=== PATIENT | female | born 1940 | race Caucasian/White ===

== ENCOUNTER 2019-01-14 06:41 | Emergency (ER) | payer MEDICARE, BC ==
[~2019-01-14] VITALS: Ht 160 cm; Wt 61.4 kg
[~2019-01-14 06:41] MED LIST: LIPITOR10 MG PO; METOPROL TAR25 MG PO
[2019-01-14 07:51] LABS: HEMATOCRIT 38.4 % (37.0-47.0); HEMOGLOBIN 12.4 g/dl (12.0-16.0); IMMATURE GRANULOCYTES 0.6 % (0.0-5.0); MEAN CORPUSCULAR HGB 31.3 pG CALC (26.0-32.0); MEAN CORPUSCULAR HGB CONC 32.3 g/L CALC (32.0-36.0); NEUT# 5.39 thou/uL (2.00-7.15); RED BLOOD COUNT 3.96 mill/uL (4.20-5.60); RED CELL DISTRI WIDTH 12.3 % (11.5-15.5)
[2019-01-14 08:03] LABS: ANION GAP 11 (6-22 (CALC)); BUN 16 mg/dL (8-23); BUN/CREATININE RATIO 29 (12-20 (CALC)); CARBON DIOXIDE 28 mmol/l (22-30); CHLORIDE 105 mmol/l (95-108); CREATININE 0.5 mg/dL (0.5-1.0); GFR > 60 ML/MIN (>=60 (CALC)); GFR FOR AFR.AMER. > 60 ML/MIN (>=60 (CALC)); POTASSIUM 4.1 mmol/l (3.5-5.1); SODIUM 141 mmol/l (137-146)
[2019-01-14] MEDS ORDERED: MECLIZINE25 MG PO (08:30)
[2019-01-14 08:34] VITALS: BP 166/76
[2019-01-14] MEDS ORDERED: ZOFRAN ODT4 MG PO (08:37)
== END 2019-01-14 08:53 | disposition home or self-care (01) ==
LOC: ED 06:41
PROVIDERS: Family Medicine
DX: R42 Dizziness and giddiness (principal)

== ENCOUNTER 2019-09-03 | Emergency (ER) | payer MEDICARE, BC ==
[~2019-09-03] MED LIST changes: +MECLIZINE25 MG PO; +ZOFRAN ODT4 MG PO
[2019-09-03 20:39] LABS: HEMATOCRIT 36.6 % (37.0-47.0); HEMOGLOBIN 11.9 g/dl (12.0-16.0); IMMATURE GRANULOCYTES 0.2 % (0.0-5.0); MEAN CELL VOLUME 97.3 fL CALC (80.0-100.0); MEAN CORPUSCULAR HGB 31.6 pG CALC (26.0-32.0); MEAN CORPUSCULAR HGB CONC 32.5 g/L CALC (32.0-36.0); NEUT# 2.55 thou/uL (2.00-7.15); RED BLOOD COUNT 3.76 mill/uL (4.20-5.60); RED CELL DISTRI WIDTH 12.5 % (11.5-15.5)
[2019-09-03 20:56] LABS: ALBUMIN 3.9 g/dL (3.2-5.0); ALKALINE PHOSPHATASE 82 u/l (38-126); AMYLASE 70 u/l (30-110); ANION GAP 9 (6-22 (CALC)); BUN 10 mg/dL (8-23); BUN/CREATININE RATIO 23 (12-20 (CALC)); CARBON DIOXIDE 31 mmol/l (22-30); CHLORIDE 102 mmol/l (95-108); CREATININE 0.5 mg/dL (0.5-1.0); GFR > 60 ML/MIN (>=60 (CALC)); GFR FOR AFR.AMER. > 60 ML/MIN (>=60 (CALC)); LIPASE 71 u/l (23-300); POTASSIUM 3.6 mmol/l (3.5-5.1); SGOT/AST 24 u/l (9-36); SODIUM 138 mmol/l (137-146); TOTAL PROTEIN 6.8 g/dL (6.3-8.2)
[2019-09-03 20:57] LABS: BILIRUBIN, TOTAL 0.3 mg/dL (0.0-1.4)
[2019-09-03 20:58] LABS: ACT PARTIAL THROMBO TIME 27.5 SECONDS (20.0-32.5); D-DIMER 3.32 mg/L (0.19-0.60); INTERNATIONAL NORMALIZED RATIO 0.9 RATIO (0.7-1.3); PROTHROMBIN TIME 9.7 SECONDS (9.0-12.5)
[2019-09-03 21:08] LABS: MYOGLOBIN 35 ng/mL (0 - 62)
[2019-09-03] MEDS ORDERED: TORADOL PO (22:39)
== END 2019-09-03 22:48 | disposition home or self-care (01) ==
PROVIDERS: Family Medicine
DX: M79.602 Pain in left arm (principal)
CPT/HCPCS: Q9967

== ENCOUNTER 2019-09-23 | Emergency (ER) | payer MEDICARE, BC ==
[~2019-09-23] MED LIST changes: +TORADOL PO
[2019-09-23 19:00] LABS: HEMATOCRIT 38.3 % (37.0-47.0); HEMOGLOBIN 11.9 g/dl (12.0-16.0); IMMATURE GRANULOCYTES 0.2 % (0.0-5.0); MEAN CELL VOLUME 98.5 fL CALC (80.0-100.0); MEAN CORPUSCULAR HGB 30.6 pG CALC (26.0-32.0); MEAN CORPUSCULAR HGB CONC 31.1 g/L CALC (32.0-36.0); NEUT# 2.54 thou/uL (2.00-7.15); RED BLOOD COUNT 3.89 mill/uL (4.20-5.60); RED CELL DISTRI WIDTH 12.8 % (11.5-15.5)
[2019-09-23 19:12] LABS: ALKALINE PHOSPHATASE 70 u/l (38-126); ANION GAP 8 (6-22 (CALC)); BUN 19 mg/dL (8-23); BUN/CREATININE RATIO 40 (12-20 (CALC)); CARBON DIOXIDE 29 mmol/l (22-30); CHLORIDE 103 mmol/l (95-108); CREATININE 0.5 mg/dL (0.5-1.0); GFR > 60 ML/MIN (>=60 (CALC)); GFR FOR AFR.AMER. > 60 ML/MIN (>=60 (CALC)); LIPASE 93 u/l (23-300); POTASSIUM 4.2 mmol/l (3.5-5.1); SGOT/AST 25 u/l (9-36); SODIUM 136 mmol/l (137-146); TOTAL PROTEIN 6.7 g/dL (6.3-8.2)
[2019-09-23 19:13] LABS: BILIRUBIN, TOTAL 0.6 mg/dL (0.0-1.4)
[2019-09-23 21:10] LABS: URINE BILIRUBIN - DIPSTICK NEGATIVE (NEGATIVE); URINE BLOOD DIPSTICK NEGATIVE (NEGATIVE); URINE COLOR YELLOW; URINE GLUCOSE - DIPSTICK NEGATIVE (NEGATIVE); URINE KETONE NEGATIVE (NEGATIVE); URINE LEUK ESTERASE NEGATIVE (NEGATIVE); URINE NITRITE - DIPSTICK NEGATIVE (Negative); URINE PROTEIN - DIPSTICK NEGATIVE (NEG-TRACE); URINE UROBILINOGEN - DIPSTICK 0.2 E.U./dL (0.2)
== END 2019-09-23 22:15 | disposition home or self-care (01) ==
PROVIDERS: Family Medicine
DX: R10.31 Right lower quadrant pain (principal)
CPT/HCPCS: Q9967

== ENCOUNTER 2021-11-24 14:32 | Emergency (ER) | payer MEDICARE, BC ==
[~2021-11-24] VITALS: Ht 160 cm; Wt 59.1 kg
[2021-11-24 15:39] LABS: HEMATOCRIT 37.1 % (37.0-47.0); IMMATURE GRANULOCYTES 0.2 % (0.0-5.0); MEAN CELL VOLUME 98.7 fL CALC (80.0-100.0); MEAN CORPUSCULAR HGB 31.9 pG CALC (26.0-32.0); MEAN CORPUSCULAR HGB CONC 32.3 g/dL CAL (32.0-36.0); NEUT# 2.78 thou/uL (2.00-7.15); RED BLOOD COUNT 3.76 mill/uL (4.20-5.60); RED CELL DISTRI WIDTH 12.3 % (11.5-15.5)
[2021-11-24 15:50] LABS: ALBUMIN 3.9 g/dL (3.2-5.0); ALKALINE PHOSPHATASE 65 u/l (38-126); ANION GAP 8 (6-22 (CALC)); BILIRUBIN, TOTAL 0.7 mg/dL (0.0-1.4); BUN 15 mg/dL (8-23); BUN/CREATININE RATIO 20 (12-20 (CALC)); CARBON DIOXIDE 29 mmol/l (22-30); CHLORIDE 105 mmol/l (95-108); CREATININE 0.7 mg/dL (0.5-1.0); GFR > 60 ML/MIN (>=60 (CALC)); GFR FOR AFR.AMER. > 60 ML/MIN (>=60 (CALC)); LIPASE 52 u/l (23-300); POTASSIUM 3.9 mmol/l (3.5-5.1); SGOT/AST 33 u/l (9-36); SODIUM 138 mmol/l (137-146); TOTAL PROTEIN 6.5 g/dL (6.3-8.2)
[2021-11-24 16:00] LABS: MYOGLOBIN 62 ng/mL (0 - 62)
[2021-11-24] MEDS ORDERED: BUPROPION150 M3 PO (16:06)
[2021-11-24] MEDS ORDERED: FUROSEMIDE20 MG PO (16:06)
[2021-11-24] MEDS ORDERED: DITROPAN XL5 MG PO (16:06)
[2021-11-24] MEDS ORDERED: ESCITALOPRAM OX10 MG PO (16:07)
[2021-11-24] MEDS ORDERED: MEMANTINE HYDROC5 MG (16:07)
[2021-11-24] MEDS ORDERED: ASPIRIN81 MG PO (16:08)
[2021-11-24 16:09] LABS: PROTHROMBIN TIME 10.1 SECONDS (9.0-12.5)
[2021-11-24] MEDS ORDERED: PROTONIX40 M2 PO (18:35)
[2021-11-24 18:40] VITALS: BP 148/71
== END 2021-11-24 19:12 | disposition home or self-care (01) ==
LOC: ED 14:32
PROVIDERS: Nurse Practitioner
DX: R07.9 Chest pain, unspecified (principal); K21.9 Gastro-esophageal reflux disease without esophagitis; E78.00 Pure hypercholesterolemia, unspecified

== ENCOUNTER 2022-06-19 10:20 | Day surgery (SDC) | payer MEDICARE, BC ==
[~2022-06-19] VITALS: Ht 160 cm; Wt 59.0 kg
[~2022-06-19 10:20] MED LIST changes: +ASPIRIN81 MG PO; +BUPROPION150 M3 PO; +DITROPAN XL5 MG PO; +ESCITALOPRAM OX10 MG PO; +FUROSEMIDE20 MG PO; +MEMANTINE HYDROC5 MG; +PROAIR HFA IN; +PROTONIX40 M2 PO
[2022-06-19 13:48] VITALS: BP 130/74
== END 2022-06-19 14:10 | disposition home or self-care (01) ==
LOC: ENDO 10:20 → ORM 15:30
PROVIDERS: ATTEND Internal Medicine Gastroenterology
PROC: 0DB68ZX Excision of Stomach, Via Natural or Artificial Opening Endoscopic, Diagnostic (ICD-10-PCS; principal; 2022-06-19)
PROC: 0DB78ZX Excision of Stomach, Pylorus, Via Natural or Artificial Opening Endoscopic, Diagnostic (ICD-10-PCS; 2022-06-19)
DX: K29.50 Unspecified chronic gastritis without bleeding (principal); K44.9 Diaphragmatic hernia without obstruction or gangrene; K31.7 Polyp of stomach and duodenum; I10 Essential (primary) hypertension; J44.9 Chronic obstructive pulmonary disease, unspecified; I25.10 Atherosclerotic heart disease of native coronary artery without angina pectoris; E78.5 Hyperlipidemia, unspecified

== ENCOUNTER 2024-03-11 15:14 | Observation (INO) | payer MEDICARE, BC ==
[~2024-03-11] VITALS: Ht 160 cm; Wt 53.0 kg
[2024-03-11 16:16] VITALS: BP 147/63
[2024-03-11] MEDS ORDERED: SODIUM CHLORIDE 0.9% 1,000 ML IV PRN (16:20)
[2024-03-11] MEDS ORDERED: MAGNESIUM HYDROXIDE 30 ML UDC PO PRN (16:20)
[2024-03-11] MEDS ORDERED: ACETAMINOPHEN 325 MG/TAB PO PRN ×2 (16:20→16:55)
[2024-03-11 16:24] LABS: BASO% 0.2 % (0-3); HEMATOCRIT 39.8 % (37.0-47.0); HEMOGLOBIN 13.5 g/dl (12.0-16.0); IMMATURE GRANULOCYTES 0.2 % (0.0-5.0); LYMPH% 24.4 % (15-41); MEAN CELL VOLUME 95.9 fL CALC (80.0-100.0); MEAN CORPUSCULAR HGB 32.5 pG CALC (26.0-32.0); MEAN CORPUSCULAR HGB CONC 33.9 g/dL CAL (32.0-36.0); MONO% 8.4 % (2-13); NEUT# 3.76 thou/uL (2.00-7.15); NEUT% 66.8 % (42-76); RED BLOOD COUNT 4.15 mill/uL (4.20-5.60); RED CELL DISTRI WIDTH 12.1 % (11.5-15.5)
[2024-03-11 16:33] LABS: ALBUMIN 4.1 g/dL (3.2-5.0); BILIRUBIN, TOTAL 0.6 mg/dL (0.02-1.3); CREATININE 0.9 mg/dL (0.5-1.0); POTASSIUM 4.2 mmol/l (3.5-5.1); TOTAL PROTEIN 6.6 g/dL (6.3-8.2)
[2024-03-11] MEDS ORDERED: SODIUM CHLORIDE 0.9% 10 ML SYR IV PRN (16:55)
[2024-03-11] MEDS ORDERED: ALUM & MAG HYDROX-SIMETHICONE 30 ML PO PRN (16:55)
[2024-03-11] MEDS ORDERED: Polyethylene Glycol 3350 17 GM/PKT PO PRN (16:55)
[2024-03-11] MEDS ORDERED: LORazepam 0.5 MG/TAB PO PRN (16:55)
[2024-03-11 17:21] LABS: URINE BILIRUBIN - DIPSTICK Negative (NEGATIVE); URINE BLOOD DIPSTICK Negative (NEGATIVE); URINE CLARITY Clear; URINE GLUCOSE - DIPSTICK Negative (NEGATIVE); URINE KETONE Negative (NEGATIVE); URINE LEUK ESTERASE Negative (Negative); URINE NITRITE - DIPSTICK Negative (Negative); URINE PH 6.5 (4.5-8.0); URINE PROTEIN - DIPSTICK Negative (NEG-TRACE); URINE SPECIFIC GRAVITY 1.015; URINE UROBILINOGEN - DIPSTICK 0.2 E.U./dL (0.2)
[2024-03-11 17:31] LABS: URINE COLOR Yellow
[2024-03-11 19:25] VITALS: BP 147/52
[2024-03-11] MEDS ORDERED: PANTOPRAZOLE SODIUM Sesquihydr 40 MG/TAB PO SCH (21:00)
[2024-03-11] MEDS ORDERED: MEMANTINE Hydrochloride 10 MG/TAB PO SCH (21:00)
[2024-03-11] MEDS ORDERED: ATORVASTATIN CALCIUM 10 MG/TAB PO SCH (21:00)
[2024-03-11] MEDS ORDERED: HALOPERIDOL LACTATE 5 MG/ML SDV IV PRN (21:45)
[2024-03-11] MEDS ORDERED: LORazepam 2 MG/ML IV PRN (21:45)
[2024-03-11 23:29] VITALS: BP 127/59
[2024-03-11 23:38] VITALS: BP 127/59
[2024-03-12 04:18] VITALS: BP 143/50
[2024-03-12 05:05] VITALS: BP 143/50
[2024-03-12 05:36] LABS: BASO% 0.4 % (0-3); HEMATOCRIT 35.9 % (37.0-47.0); HEMOGLOBIN 12.2 g/dl (12.0-16.0); LYMPH% 53.5 % (15-41); MEAN CELL VOLUME 97.8 fL CALC (80.0-100.0); MEAN CORPUSCULAR HGB 33.2 pG CALC (26.0-32.0); MONO% 9.2 % (2-13); NEUT# 1.77 thou/uL (2.00-7.15); NEUT% 36.9 % (42-76); RED BLOOD COUNT 3.67 mill/uL (4.20-5.60); RED CELL DISTRI WIDTH 12.2 % (11.5-15.5)
[2024-03-12 05:53] LABS: ALBUMIN 3.4 g/dL (3.2-5.0); BILIRUBIN, TOTAL 0.6 mg/dL (0.02-1.3); CREATININE 0.8 mg/dL (0.5-1.0); POTASSIUM 3.7 mmol/l (3.5-5.1); TOTAL PROTEIN 5.8 g/dL (6.3-8.2)
[2024-03-12 07:40] VITALS: BP 153/54
[2024-03-12] MEDS ORDERED: buPROPion HCL 150 MG TAB SR PO SCH (09:00)
[2024-03-12] MEDS ORDERED: ESCITALOPRAM 10 MG/TAB PO SCH (09:00)
[2024-03-12] MEDS ORDERED: CYANOCOBALAMIN 500 MCG/TAB ( B12) PO SCH (13:00)
[2024-03-12 16:10] VITALS: BP 140/67
[2024-03-12 18:57] VITALS: BP 137/53
[2024-03-12] MEDS ORDERED: ENOXAPARIN SODIUM 40 MG/0.4 ML SYR SC SCH (21:00)
[2024-03-12 23:46] VITALS: BP 129/59
[2024-03-13 04:44] VITALS: BP 149/65
[2024-03-13 06:16] LABS: ALBUMIN 3.1 g/dL (3.2-5.0); BILIRUBIN, TOTAL 0.7 mg/dL (0.02-1.3); CREATININE 0.7 mg/dL (0.5-1.0); MAGNESIUM 1.9 mg/dL (1.6-2.3); POTASSIUM 3.7 mmol/l (3.5-5.1); TOTAL PROTEIN 5.4 g/dL (6.3-8.2)
[2024-03-13 06:18] LABS: BASO% 0.4 % (0-3); HEMATOCRIT 34.3 % (37.0-47.0); HEMOGLOBIN 11.5 g/dl (12.0-16.0); IMMATURE GRANULOCYTES 0.2 % (0.0-5.0); LYMPH% 49.1 % (15-41); MEAN CELL VOLUME 98.6 fL CALC (80.0-100.0); MEAN CORPUSCULAR HGB CONC 33.5 g/dL CAL (32.0-36.0); MONO% 9.1 % (2-13); NEUT# 1.86 thou/uL (2.00-7.15); NEUT% 41.2 % (42-76); RED BLOOD COUNT 3.48 mill/uL (4.20-5.60); RED CELL DISTRI WIDTH 12.1 % (11.5-15.5)
[2024-03-13 07:37] VITALS: BP 156/66
[2024-03-13 10:52] VITALS: BP 159/57
== END 2024-03-13 14:22 ==
LOC: MS2 15:14
PROVIDERS: Internal Medicine; Nurse Practitioner Family; ADMIT Student in an Organized Health Care Education/Training Program; ATTEND Student in an Organized Health Care Education/Training Program
DX: G93.41 Metabolic encephalopathy (principal); N30.00 Acute cystitis without hematuria; F03.C0 Unspecified dementia, severe, without behavioral disturbance, psychotic disturbance, mood disturbance, and anxiety; I25.10 Atherosclerotic heart disease of native coronary artery without angina pectoris; K21.9 Gastro-esophageal reflux disease without esophagitis; E78.00 Pure hypercholesterolemia, unspecified; Z20.822 Contact with and (suspected) exposure to COVID-19
CPT/HCPCS: G0378; G0379; J1650